=== PATIENT | male | born 1950 | race Caucasian/White ===

== ENCOUNTER 2017-03-25 11:07 | Emergency (ER) | payer SELFPAY ==
--- NOTE | 2017-03-25 12:04 | RAD ---
CHEST 2 VIEWS: HISTORY: Cough. Dyspnea. COMPARISON: 03/25/17. FINDINGS: Cardiac silhouette and pulmonary vasculature are unremarkable. Mediastinum is midline. There is no confluent airspace consolidation, pneumothorax, or pleural fluid evident. IMPRESSION: No active cardiopulmonary abnormalities are demonstrated. POS: [facility]
[2017-03-25] MEDS ORDERED: predniSONE 20 MG TAB ONE (12:14)
== END 2017-03-25 12:35 | disposition home or self-care (01) ==
LOC: NAV ERS 11:07
DX: J20.9 Acute bronchitis, unspecified (principal); J45.909 Unspecified asthma, uncomplicated; F17.210 Nicotine dependence, cigarettes, uncomplicated; Z79.899 Other long term (current) drug therapy
CPT/HCPCS: 71046; 87804; 94640; 99406; J7506; J7620